=== PATIENT | male | born 1935 | race Caucasian/White ===

== ENCOUNTER 2020-01-31 18:40 | Emergency (ER) | payer OTHER ==
[~2020-01-31] VITALS: Ht 162.6 cm; Wt 74.8 kg
[2020-01-31 18:45] VITALS: BP_SYST 169
--- NOTE | 2020-01-31 18:45 | NUR ---
Placed in room 07 . Placed on infectious waste technician, blood pressure machine and pulse oximeter. To gown for exam. Side rails up.
--- NOTE | 2020-01-31 18:55 | NUR ---
PT AAO AND WAS BIB AMBULANCE FOR NEAR SYNCOPE WHEN HE WENT TO THE BATHROOM. PT V/S ARE STABLE AND PT DENIES ANY PAIN CURRENTLY.
--- NOTE | 2020-01-31 18:58 | NUR ---
BLOOD DRAWN PER LAB
--- NOTE | 2020-01-31 19:10 | NUR ---
PORTABLE CXR DONE AT BEDSIDE
[2020-01-31 19:28] LABS: ANION GAP 5 (5-15); CALCIUM 8.1 mg/dL (8.4-11.0); CHLORIDE 101 mmol/L (98-107); CREATININE 1.12 mg/dL (0.55-1.30); GLUCOSE 122 mg/dL (70-99); POTASSIUM 3.7 mmol/L (3.5-5.1); SODIUM SERUM 135 mmol/L (136-145); UREA NITROGEN, BLOOD 13 mg/dL (8-21)
[2020-01-31 19:34] LABS: ALANINE AMINOTRANSFERASE 31 U/L (12-78); ASPARTATE AMINOTRANSFERASE 34 U/L (10-37); TOTAL BILIRUBIN 0.7 mg/dL (0.0-1.0)
[2020-01-31 19:39] LABS: HEMATOCRIT 37.9 % (36-54); HEMOGLOBIN 12.8 g/dL (14.0-18.0); MEAN CORPUSCULAR HEMOGLOBIN 32 pg (27-31); MEAN CORPUSCULAR HGB CONC 34 % (32-36); MEAN CORPUSCULAR VOLUME 94 fL (79.0-98.0); PLATELET COUNT (AUTO) 245 K/uL (130-430); RED BLOOD CELL COUNT(AUTO) 4.05 MIL/uL (4.2-6.2); RED CELL DISTRIBUTION WIDTH 13.8 % (9.0-15.0); WHITE BLOOD COUNT (AUTO) 4.2 K/uL (4.8-10.8)
[2020-01-31 19:40] LABS: BASOPHILS % (AUTO) 0.6 % (0.0-2.0); EOSINOPHILS % (AUTO) 0.2 % (0.0-4.0); LYMPHOCYTES # (AUTO) 1.6 K/uL (1.0-5.5); LYMPHOCYTES % (AUTO) 39.1 % (20.5-51.5); MONOCYTES # (AUTO) 0.5 K/uL (0.0-1.0); MONOCYTES % (AUTO) 11.5 % (1.7-9.3); NEUTROPHILS % (AUTO) 48.6 % (40.0-70.0)
--- NOTE | 2020-01-31 19:45 | NUR ---
ER Dr. FERRO at bedside examining patient.
[2020-01-31 20:04] VITALS: BP_SYST 145
--- NOTE | 2020-01-31 20:05 | NUR ---
Patient given written and verbal discharge instructions and verbalizes understanding. ER MD discussed with patient the results and treatment provided. Patient in stable condition. ID arm band removed. No Rx given. Patient educated on pain management and to follow up with PMD. Pain Scale 0/ 10 Opportunity for questions provided and answered. Medication side effect fact sheet provided.
== END 2020-01-31 20:04 | disposition home or self-care (01) ==
LOC: SED 18:40
DX: R55 Syncope and collapse (principal); I10 Essential (primary) hypertension
CPT/HCPCS: 36415; 71045; 80053; 84484; 85025; 93005; 99285